=== PATIENT | male | born 1980 | race Caucasian/White ===

== ENCOUNTER 2024-10-24 17:51 | Emergency (ER) | payer BC ==
[~2024-10-24] VITALS: Ht 182.9 cm; Wt 80.7 kg
[2024-10-24 21:24] LABS: HEMATOCRIT 50.8 % (42.0-52.0); HEMOGLOBIN 17.7 g/dl (13.5-17.5); MEAN CORPUSCULAR HEMOGLOBIN 32.2 pg (27.0-33.0); MEAN CORPUSCULAR HGB CONC 34.8 g/dl (32.0-36.5); MEAN CORPUSCULAR VOLUME 92.5 fl (80.0-96.0); PLATELET COUNT, AUTOMATED 313 10^3/uL (150-450); RED BLOOD COUNT 5.49 10^6/uL (4.30-6.10); WHITE BLOOD COUNT 13.7 10^3/uL (4.0-10.0)
[2024-10-24] MEDS ORDERED: MELO7.5T35 PO (21:38)
[2024-10-24] MEDS ORDERED: THERTAB52 PO (21:38)
[2024-10-24] MEDS ORDERED: METO1TAB32 PO (21:38)
[2024-10-24] MEDS ORDERED: HYDR50CA2 PO (21:38)
[2024-10-24] MEDS ORDERED: ROPI2TAB46 PO (21:38)
[2024-10-24] MEDS ORDERED: ECOT81TA5 PO (21:38)
[2024-10-24] MEDS ORDERED: TURMPOW PO (21:38)
[2024-10-24] MEDS ORDERED: TRAZ-189 PO (21:38)
[2024-10-24] MEDS ORDERED: ALBU8.5H INH (21:38)
[2024-10-24] MEDS ORDERED: LISI10TA22 PO (21:38)
[2024-10-24] MEDS ORDERED: ROSU40TA81 PO (21:38)
[2024-10-24] MEDS ORDERED: OMEGCAP4 PO (21:38)
[2024-10-24] MEDS ORDERED: HOME MED LIST COMPLETE! XX SCH (21:40)
[2024-10-24 21:55] LABS: AMPHETAMINES LEVEL URINE NEGATIVE (NEGATIVE); BARBITURATES URINE NEGATIVE (NEGATIVE); BENZODIAZEPINES URINE NEGATIVE (NEGATIVE); COCAINE METABOLITE URINE NEGATIVE (NEGATIVE); METHADONE URINE NEGATIVE (NEGATIVE); OPIATES URINE NEGATIVE (NEGATIVE); PHENCYCLIDINE URINE NEGATIVE (NEGATIVE)
[2024-10-24 21:57] LABS: CANNABINOIDS URINE POSITIVE (NEGATIVE); ETHYL ALCOHOL (ETHANOL) 0.051 % (0.000-0.010)
[2024-10-24 21:58] LABS: SALICYLATE LEVEL < 3.0 MG/DL (<30)
[2024-10-24 21:59] LABS: ALBUMIN 4.2 G/DL (3.2-5.2); ALKALINE PHOSPHATASE 98 U/L (40-129); ALT/SGPT 66 U/L (7.0-40); AST/SGOT 34 U/L (<34); BILIRUBIN,DIRECT 0.1 MG/DL (<0.4); BILIRUBIN,TOTAL 0.4 MG/DL (0.3-1.2); BLOOD UREA NITROGEN 20 MG/DL (9-23); CALCIUM LEVEL 9.5 MG/DL (8.5-10.1); CARBON DIOXIDE LEVEL 30 MMOL/L (20-31); CHLORIDE LEVEL 104 MMOL/L (98-107); CREATININE FOR GFR 0.87 MG/DL (0.70-1.30); GLOMERULAR FILTRATION RATE > 60.0 (>60); GLUCOSE, FASTING 108 MG/DL (60-100); POTASSIUM SERUM 4.3 MMOL/L (3.5-5.1); SODIUM LEVEL 142 MMOL/L (136-145); TOTAL PROTEIN 7.5 G/DL (5.7-8.2)
[2024-10-24 22:01] LABS: THYROID STIMULATING HORMONE 0.583 uIU/ML (0.55-4.78)
[2024-10-25] MEDS: ASPIRIN 81MG ENTERIC TABLET PO SCH (08:27)
[2024-10-25] MEDS: METOPROLOL SUCC *XL* 25MG TAB (TopROL *XL*) PO SCH (08:27)
[2024-10-25] MEDS: MULTIVITAMINS/MINERALS THERAP 1 TAB PO SCH (08:27)
[2024-10-25] MEDS: hydrOXYzine 50 MG TAB PO SCH (08:27)
[2024-10-25] MEDS: OMEGA-3 1000MG CAPSULE PO SCH (08:28)
[2024-10-25] MEDS: ROSUVASTATIN 10 MG TAB (CRESTOR) PO SCH (08:28)
[2024-10-25] MEDS: NICOTINE 21MG/24HR 1 EA TRANSDERMAL TD SCH (11:28)
[2024-10-25 12:39] VITALS: BP 163/89; TEMP 97.7; O2SAT 99
[2024-10-25] MEDS ORDERED: traZODone 100 MG TAB PO SCH (21:00)
[2024-10-25] MEDS ORDERED: rOPINIRole 1MG TAB PO SCH (21:00)
== END 2024-10-25 12:41 | disposition home or self-care (01) ==
LOC: M ED 17:51
DX: F32.A Depression, unspecified (principal); I25.119 Atherosclerotic heart disease of native coronary artery with unspecified angina pectoris; Z91.51 Personal history of suicidal behavior; F12.10 Cannabis abuse, uncomplicated; Z79.1 Long term (current) use of non-steroidal anti-inflammatories (NSAID); Z79.51 Long term (current) use of inhaled steroids; Z79.810 Long term (current) use of selective estrogen receptor modulators (SERMs); Z79.899 Other long term (current) drug therapy